=== PATIENT | female | born 1990 | race Caucasian/White ===

== ENCOUNTER 2016-10-24 17:40 | Day surgery (SDC) | payer BC, OTHER ==
[2016-10-24] MEDS ORDERED: SODIUM CHLORIDE 1,000 ML IV STA (17:43)
[2016-10-24 17:50] VITALS: BMI 21.4
[2016-10-24] MEDS ORDERED: ACETAMINOPHEN 1000 MG/100 ML VIAL (NON FORMULARY) IVPB ONE (17:54)
--- NOTE | 2016-10-24 17:58 | PDOC ---
[id number] a 26 year old female, with significant history of two weeks ago ([facility]), but otherwise healthy, who is presenting to the ED via with heavy vaginal bleeding since last night. The patient states her symptoms began as intermittent spotting yesterday but then became more severe last night, saturating multiple menstrual pads. Patient also complains of associated uterine cramping. The patient reports a history of two spontaneous miscarriages. Patient denies any complications with her delivery. Denies fever, chills, nausea, vomiting, diarrhea, dysuria, hematuria, or blood in stool. <Kylah Sims - Last Filed: 10/25/16 01:23> - General History Source: Patient Exam Limitations: No Limitations <Con Plunkett - Last Filed: 10/28/16 07:58> - General Chief Complaint: Vaginal Bleeding Stated Complaint: VAGINAL BLEEDING Time Seen by Provider: 10/24/16 17:42 Past History <Kylah Sims - Last Filed: 10/25/16 01:23> - Past Medical History Other medical history: denies - Reproductive History (#): 3 Para: 0 Spontaneous : 2 - Immunization History Immunization Up to Date: Yes - Psycho/Social/Smoking Cessation Hx Anxiety: Yes Suicidal Ideation: No Smoking History: Never smoked Have you smoked in the past 12 months: No Number of Cigarettes Smoked Daily: 0 Information on smoking cessation initiated: No Hx Alcohol Use: No Drug/Substance Use Hx: No <Con Plunkett - Last Filed: 10/28/16 07:58> - Past Medical History Allergies/Adverse Reactions: Allergies Allergy/AdvReac Type Severity Reaction Status Date / Time No Known Allergies Allergy Verified 02/18/16 22:09 Home Medications: Ambulatory Orders Pnv95/Iron Fum/Folic Acid [ Caplet] 1 each PO DAILY 02/18/16 Acetaminophen [Tylenol .Regular Strength -] 650 mg PO Q3H PRN #0 tablet Ferrous Sulfate [Feosol] 325 mg PO BIDWM #60 tab 10/25/16 Ibuprofen [Motrin -] 200 mg PO Q4H PRN #0 tablet 10/25/16 Vitamins (Sjr) - 1 tab PO DAILY tablet 10/25/16 Review of Systems - Review of Systems Comments:: 10/24/16 19:20 GENERAL/CONSTITUTIONAL: No fever or chills. No weakness. HEAD, EYES, EARS, NOSE AND THROAT: No change in vision. No ear pain or discharge. No sore throat. CARDIOVASCULAR: No chest pain or shortness of breath. RESPIRATORY: No cough, wheezing, or hemoptysis. GASTROINTESTINAL: No nausea, vomiting, diarrhea or constipation. GENITOURINARY: Uterine cramping, vaginal bleeding. No dysuria, frequency, or change in urination. MUSCULOSKELETAL: No joint or muscle swelling or pain. No neck or back pain. SKIN: No rash NEUROLOGIC: No headache, vertigo, loss of consciousness, or change in strength/ sensation. <LeviKylah - Last Filed: 10/25/16 01:23> *Physical Exam - Vital Signs Last Vital Signs Temp Pulse Resp BP Pulse Ox 97.4 F L 71 20 82/62 98 10/24/16 17:43 10/24/16 17:43 10/24/16 17:43 10/24/16 18:07 10/24/16 17:43 - Physical Exam Comments: 10/24/16 19:20 GENERAL: Awake, alert, and fully oriented, in no acute distress HEAD: No signs of trauma EYES: PERRLA, EOMI, sclera anicteric, conjunctiva clear ENT: Auricles normal inspection, hearing grossly normal, nares patent, oropharynx clear without exudates. Moist mucosa NECK: Normal ROM, supple, no lymphadenopathy, JVD, or masses LUNGS: Breath sounds equal, clear to auscultation bilaterally. No wheezes, and no crackles HEART: Regular rate and rhythm, normal S1 and S2, no murmurs, rubs or gallops ABDOMEN: Soft, suprapubic tenderness, normoactive bowel sounds. No guarding, no rebound. No masses EXTREMITIES: Normal range of motion, no edema. No clubbing or cyanosis. No cords, erythema, or tenderness NEUROLOGICAL: Cranial nerves II through XII grossly intact. Normal speech, normal gait SKIN: Warm, Dry, normal turgor, no rashes or lesions noted. ENDOCRINE: No increased thirst. No abnormal weight change. HEMATOLOGIC/LYMPHATIC: No anemia, easy bleeding, or history of blood clots. ALLERGIC/IMMUNOLOGIC: No hives or skin allergy PELVIC: Profuse vaginal bleeding. Cervical os closed. No adnexal tendenress or fullness. No CMT. <Kylah Sims - Last Filed: 10/25/16 01:23> - Vital Signs Last Vital Signs Temp Pulse Resp BP Pulse Ox 97.4 F L 71 20 82/82 98 10/24/16 17:43 10/24/16 17:43 10/24/16 17:43 10/24/16 17:43 10/24/16 17:43 <Con Plunkett - Last Filed: 10/28/16 07:58> ED Treatment Course - LABORATORY CBC & Chemistry Diagram: 10/24/16 22:40 10/24/16 18:25 - ADDITIONAL ORDERS Additional order review: Laboratory Results 10/24/16 18:25 Sodium 139 Potassium 4.2 Chloride 104 Carbon Dioxide 23 Anion Gap 12 BUN 11 Creatinine 0.6 Creat Clearance w eGFR > 60 Random Glucose 130 H Calcium 7.9 L Total Bilirubin 0.4 AST 19 ALT 19 Alkaline Phosphatase 102 Total Protein 6.5 Albumin 3.0 L 10/24/16 18:25 RBC 3.54 L D MCV 84.4 MCHC 31.6 L RDW 14.5 MPV 8.3 Neutrophils % 77.5 Lymphocytes % 14.9 Monocytes % 5.2 Eosinophils % 1.7 Basophils % 0.7 - RADIOLOGY Radiograph Interpretation: 10/24/16 22:10 Sales Research Analyst: ([email or web address]) Report Date: 10/24/2016 20:07:00 Report Status: Preliminary Begin of Report Content Referring Physician: Con Plunkett Patient Name: Sara Flores THIS IS A PRELIMINARY REPORT FROM IMAGING CAREER GUIDANCE COUNSELOR EXAM: Transabdominal pelvic ultrasound and ovarian duplex IMAGES: 41 DATE OF SERVICE: 2016-10-24 20:07:31.0 REASON FOR EXAM: 2 weeks status post vaginal delivery, worsening vaginal bleeding COMPARISON: None. FINDINGS: Uterine dimensions are 15.0 x 6.2 x 8.4 cm. The endometrium is thickened and heterogeneous measuring 2.6 cm in thickness. Minimal vascular flow is noted through the cephalad aspect of the endometrium. Ovary dimensions are 4.1 x 1.5 x 2.5 cm for the right ovary and 3.3 x 3.2 x 2.7 cm for the left ovary. There is intact blood flow demonstrated to the ovaries. Arterial and venous spectral waveforms demonstrated. There is no evidence of torsion. There is mild free fluid in the anterior cul-de-sac. IMPRESSION: Thickened heterogeneous endometrium with mild color flow. Cannot exclude RPOC. Intact blood flow demonstrated to both ovaries. There is no evidence of ovarian torsion. There is mild free fluid. THIS DOCUMENT HAS BEEN ELECTRONICALLY SIGNED Madi Medina MD 10/24/2016 21:56 EST David. Please call Imaging Engine Turner [phone]) with questions. End of Report Content 10/25/16 01:23 Sales Research Analyst: ([email or web address]) Report Date: 10/25/2016 00:28:00 Report Status: Preliminary Begin of Report Content Referring Physician: Con Plunkett Patient Name: Sara Flores THIS IS A PRELIMINARY REPORT FROM IMAGING CAREER GUIDANCE COUNSELOR EXAM: Pelvic ultrasound limited IMAGES: 7 DATE OF SERVICE: 2016-10-25 00:28:13.0 REASON FOR EXAM: Reevaluate for retained products COMPARISON: Prior ultrasound on 10/24/16 FINDINGS: Compared to the prior study there is decreased echogenic material within the endometrial cavity. Some heterogeneous material remains visible within the endometrial cavity. The endotracheal stripe measures approximately 1.5 cm. No definite color flow to the endometrium is demonstrated on these limited views. THIS DOCUMENT HAS BEEN ELECTRONICALLY SIGNED Madi Medina MD 10/25/2016 01:18 EST David. Please call Imaging Engine Turner [phone]) with questions. End of Report Content - Medications Given in the ED: ED Medications Discontinued Medications Generic Name Dose Route Start Last Admin Trade Name Christina PRN Reason Stop Dose Admin Acetaminophen 1,000 mg 10/24/16 17:54 10/24/16 18:14 Ofirmev Injection - IVPB 10/24/16 17:55 1,000 mg ONCE ONE Administration Sodium Chloride 1,000 mls @ 1,000 mls/hr 10/24/16 17:43 10/24/16 18:07 Normal Saline - IV 10/24/16 18:42 1,000 mls/hr ASDIR STA Administration <Kylah Sims - Last Filed: 10/25/16 01:23> - LABORATORY CBC & Chemistry Diagram: 10/25/16 18:00 10/24/16 18:25 - RADIOLOGY Radiology Studies Ordered: Category Date Time Status TRANSVAGINAL ULTRASOUND US [US] Stat Ultrasound 10/24/16 17:43 Ordered <Con Plunkett - Last Filed: 10/28/16 07:58> Medical Decision Making - Medical Decision Making 10/24/16 17:55 A portion of this note was documented by scribe services under my direction. I have reviewed the details of the note, within reason, and agree with the documentation with the following case summary and management plan written by me. Patient treated in the ED. Nursing notes are reviewed and incorporated into the medical decision-making. Vital signs reviewed. Peripheral IV access obtained by the nurse, laboratory studies are drawn and sent, reviewed and interpreted by myself. Vital Signs Temp Pulse Resp BP Pulse Ox 97.4 F L 71 20 82/82 98 10/24/16 17:43 10/24/16 17:43 10/24/16 17:43 10/24/16 17:43 10/24/16 17:43 26-year-old female with no past medical history brought in by EMS for heavy vaginal bleeding. Approximately 2 weeks ago, patient had a normal spontaneous vaginal delivery that was uncomplicated. Patient has been having intermittent vaginal spotting but then had profuse vaginal bleeding since yesterday. She reports numerous changes of her pads. She denies fainting or chest pain or short of breath. However, patient started developing uterine cramping. Denies fevers or chills. Patient has had history of 2 prior spontaneous miscarriages and only one normal spontaneous vaginal delivery [id number]. The patient is bleeding quite profusely. EMS had found her blood pressure to be 60s over 30s initially which improved with 500 mL of IV fluids to 80s over 50s. At this time, patient is pallorous but nontoxic at this time. Patient will need stat transvaginal ultrasound to determine for retained placenta or products. We' ll need to draw CBC and type and screen for potential blood transfusion. Patient should likely be considered for observation for persistent vaginal bleed. Patient's delivery was at [facility]. 10/25/16 00:35 CBC, BMP 10/24/16 22:40 10/24/16 18:25 CMP Sodium 139 mmol/L (136-145) 10/24/16 18:25 Potassium 4.2 mmol/L (3.5-5.1) 10/24/16 18:25 Chloride 104 mmol/L (98-107) 10/24/16 18:25 Carbon Dioxide 23 mmol/L (21-32) 10/24/16 18:25 Anion Gap 12 (8-16) 10/24/16 18:25 BUN 11 mg/dL (7-18) 10/24/16 18:25 Creatinine 0.6 mg/dL (0.55-1.02) 10/24/16 18:25 Creat Clearance w eGFR > 60 (>60) 10/24/16 18:25 Random Glucose 130 mg/dL (74-106) H 10/24/16 18:25 Calcium 7.9 mg/dL (8.5-10.1) L 10/24/16 18:25 Total Bilirubin 0.4 mg/dL (0.2-1.0) 10/24/16 18:25 AST 19 U/L (15-37) 10/24/16 18:25 ALT 19 U/L (12-78) 10/24/16 18:25 Alkaline Phosphatase 102 U/L (45-117) 10/24/16 18:25 Total Protein 6.5 g/dl (6.4-8.2) 10/24/16 18:25 Albumin 3.0 g/dl (3.4-5.0) L 10/24/16 18:25 Initially was not 9.4. Repeat CBC was 8.9. The patient's ultrasound initially demonstrated retain products of conception. Dr. Garcia was paged. She requested that I initiate 20 units of Pitocin over 1 L of lactated Ringer's and 25 mg of Methergine IM. She had seen the patient. Had attempted to pull the products out. However, repeat ultrasound demonstrated retained products of conception. Plan is to take the patient to the operating room for a D&C. Dr. Garcia accepted the patient. Case discussed in detail with admitting physician including history, physical exam and ancillary studies. Admitting physician has assumed care for the patient, will follow all pending diagnostics and will complete the evaluation and treatment. <Con Plunkett - Last Filed: 10/28/16 07:58> *DC/Admit/Observation/Transfer - Attestations Scribe Attestion: 10/24/16 19:21 Documentation prepared by Kylah Sims, acting as medical leader for Con Plunkett MD. <Kylah Sims - Last Filed: 10/25/16 01:23> - Discharge Dispostion Admit: Yes <Con Plunkett - Last Filed: 10/28/16 07:58> Diagnosis at time of Disposition: Products of conception, retention - Discharge Dispostion Disposition: HOME Condition at time of disposition: Stable - Prescriptions - Referrals
[2016-10-24] MEDS ORDERED: ACETAMINOPHEN INJECTION 100 ML IVPB ONE (18:10)
[2016-10-24 18:31] LABS: BASOPHIL 0.7 % (0-2.0); EOSINOPHIL 1.7 % (0-4.5); MCH 26.7 pg (25.7-33.7); MCHC 31.6 g/dl (32.0-36.0); MEAN CELL VOLUME 84.4 fl (80-96); MEAN PLT VOLUME 8.3 fl (7.5-11.1); NEUTROPHILS 77.5 % (42.8-82.8); PLATELET COUNT 367 K/MM3 (134-434); RDW 14.5 % (11.6-15.6); WHITE BLOOD COUNT 10.1 K/mm3 (4.0-10.0)
[2016-10-24 18:45] LABS: INR 1.2 (0.82-1.09); PROTHROMBIN TIME (PATIENT) 13.3 SEC (9.98-11.88)
[2016-10-24 18:48] LABS: ACTIVATED PTT 28.2 SECONDS (26.9-34.4)
[2016-10-24 18:54] LABS: ALK PHOS 102 U/L (45-117); ANION GAP 12 (8-16); BILIRUBIN,TOTAL 0.4 mg/dL (0.2-1.0); CALCIUM 7.9 mg/dL (8.5-10.1); CO2 23 mmol/L (21-32); CREATININE 0.6 mg/dL (0.55-1.02); GLUCOSE,RANDOM 130 mg/dL (74-106); SGOT/AST 19 U/L (15-37); SGPT/ALT 19 U/L (12-78); TOT PROT 6.5 g/dl (6.4-8.2)
[2016-10-24] MEDS ORDERED: METHYLERGONOVINE MALEATE 0.2 MG/1 ML AMP IM ONE (22:09)
[2016-10-24] MEDS ORDERED: OXYTOCIN 15 UNITS/ LR 250 ML 250 ML IV SCH (22:15)
[2016-10-24] MEDS ORDERED: OXYTOCIN 10 UNITS/ML VIAL ONE (22:43)
[2016-10-24] MEDS ORDERED: METHYLERGONOVINE MALEATE 0.2 MG/1 ML AMP ONE (22:45)
[2016-10-24 22:51] LABS: MCH 26.9 pg (25.7-33.7); MCHC 32.1 g/dl (32.0-36.0); MEAN CELL VOLUME 83.8 fl (80-96); MEAN PLT VOLUME 7.7 fl (7.5-11.1); PLATELET COUNT 407 K/MM3 (134-434); RDW 14.3 % (11.6-15.6); WHITE BLOOD COUNT 10.6 K/mm3 (4.0-10.0)
[2016-10-24] MEDS ORDERED: morphine CARPU-JECT 4 MG/1 ML DISP.SYRIN ONE (23:40)
[2016-10-24] MEDS ORDERED: morphine CARPU-JECT 4 MG/1 ML DISP.SYRIN IVPUSH ONE (23:57)
[2016-10-25] MEDS ORDERED: morphine CARPU-JECT 4 MG/1 ML DISP.SYRIN IVPUSH ONE
[2016-10-25] MEDS ORDERED: morphine CARPU-JECT 4 MG/1 ML DISP.SYRIN ONE (00:01)
[2016-10-25] MEDS ORDERED: OXYTOCIN 10 UNITS/ML VIAL ONE (00:08)
[2016-10-25] MEDS ORDERED: OXYTOCIN 15 UNITS/ LR 250 ML 250 ML IVPB SCH (00:15)
[2016-10-25] MEDS ORDERED: ceFAZolin 2 GRAM PREMIX BAG IVPB ONE (00:18)
[2016-10-25] MEDS ORDERED: CEFAZOLIN (PRE-DOCKED) 50 ML IVPB ONE (00:45)
[2016-10-25] MEDS ORDERED: METOCLOPRAMIDE HCL INJECTION 10 MG/2 ML VIAL IVPB ONE (01:06)
--- NOTE | 2016-10-25 01:14 | HP ---
Past Medical History - Primary Care Physician PCP:: Jana Johnson - Admission Chief Complaint: 26 yrs , s/p on 10/07/16 came to ER c/o heavy vaginal bleeding with blood clots since 10/23/16, she had syncopal attack on 05/31, us shows retained products of conception, after attempt to remove in ER , still some are noted in the uterus she has continued bleeding . so she is taken to OR History of Present Illness: pt had h/o , 39 weeks gestation at [facility] on 10/07/16 , episiotomy sutured spontaneous onset LP . pt states she had gush of blood after delivery Baby girl, 6'9" . she had hemorrhoids post Breast feeding she experienced heavy bleeding with multiple large clots since 10/23/16, she called her PMD, she was told to come to office, & she could not go there She had syncopal attack later on 10/24/16 she came to ER . History Source: Patient Limitations to Obtaining History: No Limitations - Past Medical History BIOMETRICS SPECIALIST: No: Alzheimer's, CVA Cardiovascular: No: AFIB, HTN, Mitral Stenosis Pulmonary: No: Asthma Gastrointestinal: Yes: Hemorrhoids ...: 1 ...Para: 1 Heme/Onc: Yes: Anemia Infectious Disease: No: HIV, STD's Endocrine: No: Diabetes Mellitus, Hyperthyroidism, Hypothyroidism - Past Surgical History Past Surgical History: Yes: None Hx Myomectomy: No Hx Transabdominal Cerclage: No - Smoking History Smoking history: Never smoked Have you smoked in the past 12 months: No Aproximately how many cigarettes per day: 0 - Alcohol/Substance Use Hx Alcohol Use: No History of Substance Use: reports: None - Social History Other Social History: patient is nurse in pediatric unit at [employer] Home Medications - Allergies Allergies/Adverse Reactions: Allergies Allergy/AdvReac Type Severity Reaction Status Date / Time No Known Allergies Allergy Verified 02/18/16 22:09 - Home Medications Home Medications: Ambulatory Orders Pnv95/Iron Fum/Folic Acid [ Caplet] 1 each PO DAILY 02/18/16 Physical Exam - Maternity Vital Signs: Vital Signs Temperature 97.4 F L 10/24/16 17:43 Pulse Rate 91 H 10/24/16 19:48 Respiratory Rate 15 10/24/16 19:48 Blood Pressure 120/73 10/24/16 19:48 O2 Sat by Pulse Oximetry (%) 100 10/24/16 19:48 Selected Entries 10/24/16 19:48 Pulse Rate [ 91 H Right] Blood Pressure 120/73 [Left] Constitutional: Yes: Anxious, Severe Distress (10/10 cramping , receiving 20 units pitocin), Pallor Eyes: Yes: WNL HENT: Yes: WNL Neck: Yes: WNL Cardiovascular: Yes: WNL Lungs: Clear to auscultation Breast(s): Yes: WNL, Other (milk secretion) - Abdominal Exam/OB Fundal Height: 14 (post parum uterus 14 wks size, POC at OS noted, Large blood clts in vagina , midline epi sutures ,firm - soft ut ) - Vaginal Exam/OB Vaginal Bleediing: Heavy (blood clots) Dilatation (cm): osopen - Physical Exam Musculoskeletal: Yes: WNL Extremities: Yes: WNL. No: Calf Tenderness Edema: No Integumentary: Yes: WNL Deep Tendon Reflex Grade: Normal +2 Psychiatric: Yes: WNL, Alert, Oriented - Labs Lab Results: CBC, BMP 10/24/16 22:40 10/24/16 18:25 Laboratory Tests 10/24/16 10/24/16 10/24/16 18:25 18:25 18:25 WBC 10.1 H RBC 3.54 L D Hgb 9.4 L D Hct 29.9 L D Plt Count 367 D Neutrophils % 77.5 Lymphocytes % 14.9 INR 1.20 H PTT (Actin FS) 28.2 AST 19 ALT 19 Laboratory Tests 10/24/16 18:25 Blood Type A POSITIVE Antibody Screen Negative Problem List - Problems (1) Secondary hemorrhage Code(s): O72.2 - DELAYED AND SECONDARY HEMORRHAGE (2) Retained prod concept-del w/ complication Code(s): O73.1 - RETAINED PORTIONS OF PLACENTA AND MEMBRANES, W/O HEMORRHAGE (3) Anemia Code(s): D64.9 - ANEMIA, UNSPECIFIED Qualifiers: Other causes of anemia: acute posthemorrhagic Assessment/Plan 26 yrs , s/p retained products of conception , secondary PPH , severe Anemia Plan In ER with aseptic precautions I removed products noted at Os with ring forceps as much as i could remove pt was given Iv Morphine repeat US still shows retained products above cx in lower segment . Do the procedure Evacuation -curettage in OR under GA IV [address] Iv Pitocin 20 iu in 1000 ml of RL IV reglan 10 mg ( sice pt is full stomach at 7.30 pm 10/24/16)
[2016-10-25] MEDS ORDERED: METOCLOPRAMIDE HCL INJECTION 10 MG/2 ML VIAL ONE (01:33)
[2016-10-25] MEDS ORDERED: SUCCINYLCHOLINE CHLORIDE 200 MG/10 ML VIAL ONE (02:07)
[2016-10-25] MEDS ORDERED: PROPOFOL 20 ML ONE (02:12)
[2016-10-25] MEDS ORDERED: BENZOCAINE 20% 57 GM BOTTLE TP PRN (02:31)
[2016-10-25] MEDS ORDERED: IBUPROFEN 600 MG TABLET (FP) PO PRN (02:31)
[2016-10-25] MEDS ORDERED: WITCH HAZEL 50% (TUCKS) 40 PAD/JAR PAD TP PRN (02:31)
[2016-10-25] MEDS ORDERED: METHYLERGONOVINE MALEATE 0.2 MG/1 ML AMP IM PRN (02:31)
[2016-10-25] MEDS ORDERED: ACETAMINOPHEN 325 MG TABLET (FP) PO PRN (02:31)
[2016-10-25] MEDS ORDERED: oxyCODONE HCL 5 MG TABLET PO PRN (02:31)
[2016-10-25] MEDS ORDERED: BENZOCAINE 28 GM HEMORRHOIDAL OINTMENT TP PRN (02:31)
[2016-10-25] MEDS ORDERED: BISACODYL 10 MG SUPP.RECT RC PRN (02:31)
[2016-10-25] MEDS ORDERED: ONDANSETRON 4 MG/2 ML VIAL IVPUSH PRN (02:37)
[2016-10-25] MEDS ORDERED: KETOROLAC TROMETHAMINE 30 MG/1 ML VIAL ONE (02:38)
[2016-10-25] MEDS: KETOROLAC TROMETHAMINE 30 MG/1 ML VIAL IVPUSH ONE ×2 (02:40→19:26)
--- NOTE | 2016-10-25 02:41 | OP ---
Operative Note - Note: Operative Date: 10/25/16 Pre-Operative Diagnosis: secondary PPH Operation: evacuation & curettage Findings: ut 14 weeks size, os open curettage done, fleshy tissuse curetted adnexa inpatient care manager rn Surgeon: Jana Johnson Anesthesiologist/TOLL MECHANIC: Tammi Valdez Anesthesia: General Specimens Removed: uterine contents Estimated Blood Loss (mls): 100 (in OR ) Drains, Volume Out (mls): 150 (st cath before procedure ) Fluid Volume Replaced (mls): 400 (pitocin 20 iu, IMMethergine in OR ) Operative Report Dictated: Yes
[2016-10-25] MEDS ORDERED: D5W-LR W/ 20 UNITS OXYTOCIN 1,000 ML IV SCH (02:45)
--- NOTE | 2016-10-25 07:42 | OP ---
DATE OF OPERATION: PREOPERATIVE DIAGNOSES: Secondary hemorrhage, retained products of conception. POSTOPERATIVE DIAGNOSES: Secondary hemorrhage, retained products of conception. OPERATION DONE: Evacuation, curettage under general anesthesia. ANESTHESIOLOGIST: Tammi Valdez MD FINDINGS: This is a 26-year-old 1, para 1-0-01, status post normal spontaneous vaginal delivery with episiotomy on October 07, 2016, and patient experienced heavy vaginal bleeding on October 23 and October 24 and presented to the emergency room. Sonogram shows retained products of conception. Some of the products at the os were removed in the ER and still repeat sonogram shows products up there in the uterus, so patient was taken to the operating room. PROCEDURE: Patient was brought to the operating room. General anesthesia was given. Lithotomy position was given. Pubis, perineum, vagina were painted with Betadine. Draped in usual manner and time out was done. Bladder was catheterized and emptied; 150 mL of nakia-colored urine was removed. Bimanual exam was done. Uterus was anteverted, 14 weeks' size also. both adnexae were not palpable. Weighted speculum was put anterior lip of cervix was held with ring forceps and then with the long forceps some products in the uterine cavity were taken out and then the curettage was done until gritty sensation was felt. Estimated blood loss was 100 mL and uterine cavity again was cleaned with a sponge. Episiotomy was checked. It was well healed midline and reexamination was done. Uterus was firm. Lower segment was still soft, so the anesthesiologist was asked to give IM Methergine and IV Pitocin was continued. Patient tolerated procedure well and was transferred to the recovery room in stable condition. Preoperatively in the emergency room, she received 2 g of IV Ancef. Terrell [id number] MTDD
[2016-10-25] MEDS: FERROUS SO4 325 MG TABLET (FP) PO SCH ×2 (08:26→17:45)
[2016-10-25 08:52] LABS: BASOPHIL 0.6 % (0-2.0); EOSINOPHIL 2.2 % (0-4.5); MCH 27.1 pg (25.7-33.7); MCHC 32.4 g/dl (32.0-36.0); MEAN CELL VOLUME 83.7 fl (80-96); MEAN PLT VOLUME 7.9 fl (7.5-11.1); NEUTROPHILS 64.1 % (42.8-82.8); PLATELET COUNT 276 K/MM3 (134-434); RDW 14.2 % (11.6-15.6); WHITE BLOOD COUNT 8.5 K/mm3 (4.0-10.0)
[2016-10-25] MEDS ORDERED: PRENATAL VITAMINS W/ FOLIC ACID TABLET (FP) PO SCH (10:00)
--- NOTE | 2016-10-25 10:42 | PN ---
Progress Note (short form) - Note Progress Note: pt feels weak. No c/o dizziness or blackout Selected Entries 10/25/16 10/25/16 06:00 07:50 Temperature 99 F 98.6 F Pulse Rate 80 77 Blood Pressure 97/66 95/55 voided without difficulty vaginal bleeding is small amount No c/o cramps p/a ut is not palpable minimal vaginal bleeding Laboratory Tests 10/25/16 07:50 WBC 8.5 RBC 2.50 L D Hgb 6.8 L* D Hct 21.0 L D Plt Count 276 D Neutrophils % 64.1 Lymphocytes % 26.4 D Imp Severe Anemia secondary to Blood loss Risk, benefits, alt of pack cell transfusion were told not ltd to infection, transfusion reaction etc Plan pt agrees for transfusion transfuse 2 units pack cells repeat cbc following transfusion pt requests discharge today Problem List - Problems (1) Secondary hemorrhage Code(s): O72.2 - DELAYED AND SECONDARY HEMORRHAGE (2) Retained prod concept-del w/ complication Code(s): O73.1 - RETAINED PORTIONS OF PLACENTA AND MEMBRANES, W/O HEMORRHAGE (3) Anemia Code(s): D64.9 - ANEMIA, UNSPECIFIED Qualifiers: Other causes of anemia: acute posthemorrhagic
[2016-10-25 14:50] LABS: HYPOCHROMIA 2+; PLATELET COMMENT2 NO CLOTTING DETECTED; PLATELET COMMENT3 MOD LARGE PLTS; PLATELET ESTIMATE ADEQUATE (NORMAL); POIKILOCYTOSIS 2+; POLYCHROMASIA 1+
[2016-10-25 14:51] LABS: ANISOCYTOSIS 2+
[2016-10-25 18:49] LABS: EOSINOPHIL 4.8 % (0-4.5); MCH 28.5 pg (25.7-33.7); MCHC 33.7 g/dl (32.0-36.0); MEAN CELL VOLUME 84.8 fl (80-96); MEAN PLT VOLUME 7.8 fl (7.5-11.1); NEUTROPHILS 63.8 % (42.8-82.8); PLATELET COUNT 303 K/MM3 (134-434); WHITE BLOOD COUNT 7.6 K/mm3 (4.0-10.0)
--- NOTE | 2016-10-25 19:19 | PN ---
Progress Note (short form) - Note Progress Note: pt feels better afebrile v/sstable. vaginal bleeding minimal Selected Entries 10/25/16 17:40 Temperature 98.5 F Pulse Rate 89 Blood Pressure 103/64 Laboratory Tests 10/25/16 18:00 WBC 7.6 Hgb 9.3 L D Hct 27.8 L D Plt Count 303 s/p 2 units pack cells transfusion plan dicharge today. Problem List - Problems (1) Secondary hemorrhage Code(s): O72.2 - DELAYED AND SECONDARY HEMORRHAGE (2) Retained prod concept-del w/ complication Code(s): O73.1 - RETAINED PORTIONS OF PLACENTA AND MEMBRANES, W/O HEMORRHAGE (3) Anemia Code(s): D64.9 - ANEMIA, UNSPECIFIED Qualifiers: Other causes of anemia: acute posthemorrhagic
[2016-10-25 19:52] VITALS: BP 116/72; PULSE 87; TEMP 98.1
[2016-10-26] MEDS ORDERED: SENNOSIDES/DOCUSATE COMBO (SENNA PLUS) TABLET (UD) PO PRN (22:00)
--- NOTE | 2016-10-28 14:02 | PATH ---
Surgical Pathology Report Patient Name: VANITA MCMAHON [facility]. Rec. #: [id number] /Age/Gender: 1990 (Age: 26) / F Account: [id number] Location: AMBULATORY SURG Taken: 10/25/2016 Received: 10/27/2016 Reported: 10/28/2016 Physicians: Jana Johnson M.D. Specimen(s) Received A: RETAINED PRODUCTS OF CONCEPTION B: PRODUCTS OF CONCEPTION Clinical History Vaginal bleeding, retained products, s/p vaginal 2 weeks ago Final Diagnosis A. RETAINED PRODUCTS OF CONCEPTION, EVACUATION AND CURETTAGE: FRAGMENTS OF PLACENTAL TISSUE, FOCALLY NECROTIC. FRAGMENTS OF BENIGN ENDOMETRIAL TISSUE. FRAGMENTS OF BENIGN SMOOTH MUSCLE. CLOTTED OF BLOOD. B. PLACENTA: PORTION OF MATURE APPEARING FOCALLY NECROTIC PLACENTA WITH FOCAL CALCIFICATIONS. Electronically Signed Mike Barth M.D. Gross Description A. Received in formalin labeled "retained products" is an 8.5 x 5.0 x 1.0 cm aggregate of rowe soft tissue fragments admixed with blood clot. A consumer sales representative portion is submitted in one cassette. B. Received in formalin labeled with the patient's name and indicated on the requisition to be placenta, is a 6.0 x 3.0 x 2.2 cm rowe, irregular portion of possible placenta with attached blood clot. [employer] sections are submitted in 3 cassettes. /10/27/201610/27/2016
== END 2016-10-25 19:56 | disposition home or self-care (01) ==
LOC: JER 17:40 → JASUSAT 10-25 00:37 → J3W 10-25 03:47 → JASUSAT 10-25 19:56
PROVIDERS: ATTEND Obstetrics & Gynecology
PROC: 10D17ZZ Extraction of Products of Conception, Retained, Via Natural or Artificial Opening (ICD-10-PCS; principal; 2016-10-25 01:30)
DX: O72.2 Delayed and secondary postpartum hemorrhage (principal)
CPT/HCPCS: 36415; 36430; 76856-TC; 80053; 85025; 85027; 85610; 85730; 86850; 86900; 86901; 86922; 88305-TC; 94760; 99285-25; P9038; P9058